=== PATIENT | male | born 2000 | race Caucasian/White ===

== ENCOUNTER 2024-07-16 06:19 | Day surgery (SDC) | payer OTHER, SELFPAY ==
[2024-07-16] VITALS (9 sets, daily range): BP systolic 101–137; BP diastolic 59–79; BMI 28.4
[2024-07-16] MEDS: NORMOSOL-R/PLASMALYTE-A 1000 IV (08:06)
[2024-07-16] MEDS: DILAUDID 0.25 MG IV (11:10)
== END 2024-07-16 12:23 | disposition home or self-care (01) ==
LOC: SDS 06:19
PROVIDERS: ATTENDING PHYSICIAN Otolaryngology
PROC: 0CBQXZZ Excision of Adenoids, External Approach (ICD-10-PCS; 2024-07-16)
PROC: 0CBPXZZ Excision of Tonsils, External Approach (ICD-10-PCS; 2024-07-16)
DX: J35.01 Chronic tonsillitis (principal)
CPT/HCPCS: 42821; 88304

== ENCOUNTER 2024-12-31 16:37 | Emergency (ER) | payer OTHER, SELFPAY ==
[2024-12-31 16:40] VITALS: BP 160/100
--- NOTE | 2024-12-31 17:14 | ED.GENMED ---
History of Present Illness
General
Chief Complaint: Crisis Evaluation
Source: patient and family
Exam Limitations: none
Time Seen by Provider: 12/31/24 16:54
Nursing documentation reviewed up to this point in time: agreed with
History of Present Illness
History of Present Illness:
24-year-old male presents for evaluation of suicidal ideation has anxiety and depression recently went through a break-up he is full-time student works full-time some very stressed over the weekend was having thoughts of harming his self no specific
plan although he asked his friend to take his weapons he is accompanied by his mother he has had some sort of therapy through his work x 1 denies any alcohol denies any drugs denies any overdose admits to not sleeping well
Past History
Past History
ED Past Medical History: Psychiatric
Social History
Tobacco: Non-smoker
Alcohol: None
Drug: None
Personal: Single
Living: with family
Employment: Employed
Review of Systems
Review of Systems
All Other Systems: Not applicable
Constitutional: Reports sleep disturbance
Psychiatric: Reports depression, anxiety and suicidal
Phy Exam
Physical Exam
Physical Exam:
Physical Exam
General: no apparent distress, not acutely ill
Neck: No jaundice
Heart: Regular
Lungs: no acute respiratory distress.
Neuro: alert and oriented. no focal neurological deficits
Skin: no rash
Psychiatric: Cooperative, admits to depression anxiety and suicidal thoughts without a specific suicidal plan
Extremities: no edema.
Course
Orders/Labs/Results
Orders:
Orders
12/31/24 17:12
Crisis Consult Urgent
Reason for Consult: sI
Vital Signs
Initial and Last Documented VS:
Initial Vital Signs
Temp Pulse Resp BP Pulse Ox
98.6 F 91 16 160/100 98
12/31/24 16:40 12/31/24 16:40 12/31/24 16:40 12/31/24 16:40 12/31/24 16:40
Last Documented Vital Signs
Temp Pulse Resp BP Pulse Ox
98.6 F 91 16 160/100 98
12/31/24 16:40 12/31/24 16:40 12/31/24 16:40 12/31/24 16:40 12/31/24 16:40
MDM/Problems Addressed
Differential Diagnosis Includes:
Anxiety depression suicidal ideation no delusions no overdose
MDM/Problems Addressed:
Suicidal anxiety depression
*Pulse Oximetry
Patient hypoxic: no
*Critical Care Note
Total Time (30-74mins, 75-104mins- exclusive of procedures): Not Applicable
ED Attending Note
-
Portions of this chart may have been created with voice recognition software.� Occasional wrong word or��sound alike� substitutions may have occurred due to the inherent limitations of voice recognition software.
Discharge Plan
Departure
Prescriptions:
No Action
hydrocodone-acetaminophen 5-325 mg tablet
1 - 2 tab PO Q4HPRN PRN (Reason: pain) Qty: 15 0RF
ondansetron 4 mg tablet,disintegrating
4 mg PO Q8HPRN PRN (Reason: nausea) Qty: 5 1RF
Interventions
Interventions:
*Risk Screen - Suicide Last Done: 12/31/24 16:40
*Neglect/Abuse Screening Last Done: 12/31/24 16:40
Discharge Date and Time
Print Language: GREENLANDIC
[2024-12-31 18:52] LABS: % Basophils 0.4 % (0-2); % Eosinophils 3.3 % (0-6); % Immature Granulocytes 0.4 % (0-0.5); % Lymphocytes 36.3 % (20.5-51.1); % Monocytes 10.1 % (1.7-9.3); % Neutrophils 49.5 % (42.2-75.2); Absolute Eosinophils 0.2 10^3/uL (0-0.7); Absolute Lymphocytes 2.6 10^3/uL (1.2-3.4); Absolute Monocytes 0.7 10^3/uL (0.1-0.6); Absolute Neutrophils 3.6 10^3/uL (1.4-6.5); Hematocrit 46.2 % (39.0-52.0); Hemoglobin 15.1 g/dL (13.0-18.0); Mean Corp Hgb Conc. 32.7 g/dL (33.0-37.0); Mean Corpuscular Hgb 27.2 pg (27.0-31.0); Mean Corpuscular Volume 83.1 fL (80.0-94.0); Mean Platelet Volume 9.7 fL (7.4-10.4); Nucleated Red Blood Cells % 0 % (-); Platelet Count 230 10^3/uL (130-400); Red Blood Cell Count 5.56 10^6/uL (4.70-6.10); Red Cell Dist. Width 12.8 % (11.5-14.5); White Blood Cell Count 7.2 10^3/uL (4.8-10.8)
[2024-12-31 19:11] LABS: ALT (SGPT) 46 U/L (0-50); AST (SGOT) 51 U/L (17-59); Acetaminophen < 10 ug/ml (10-30); Albumin 4.9 g/dl (3.5-5.0); Alkaline Phosphatase 59 U/L (38-126); Blood Urea Nitrogen 12 mg/dl (9-20); Calcium 10.1 mg/dl (8.4-10.2); Carbon Dioxide 27 mmol/L (22-30); Chloride 101 mmol/L (98-107); Glucose 102 mg/dl (70-99); Potassium 4.3 mmol/L (3.5-5.1); Salicylate < 1.0 mg/dl (2.0-20.0); Sodium 139 mmol/L (135-145); Total Bilirubin 0.7 mg/dl (0.2-1.3); Total Protein 7.5 g/dl (6.3-8.2); eGFR > 60.00
[2024-12-31 19:12] LABS: Amphetamines Negative (Negative); Barbiturates Negative (Negative); Benzodiazepines Negative (Negative); Buprenorphine Negative (Negative); Cocaine Negative (Negative); Marijuana Negative (Negative); Methadone Negative (Negative); Methamphetamines Negative (Negative); Opiates Negative (Negative); Phencyclidine Negative (Negative); Tricyclic Antidepressants Negative (Negative)
[2024-12-31 19:21] LABS: Alcohol None Detected
== END 2024-12-31 22:14 ==
LOC: EMR 16:37
PROVIDERS: EMERGENCY PHYSICIAN Emergency Medicine; FAMILY PHYSICIAN Family Medicine
DX: R45.851 Suicidal ideations (principal); F32.A Depression, unspecified; F41.9 Anxiety disorder, unspecified
CPT/HCPCS: 99283; 80053; 80143; 80179; 80306; 82077; 85025